=== PATIENT | male | born 1995 | race Two or more races ===

== ENCOUNTER 2020-04-14 05:37 | Emergency (ER) | payer MEDICAID, OTHER ==
[~2020-04-14] VITALS: Ht 175.3 cm; Wt 93.0 kg
[2020-04-14 05:50] VITALS: BP 152/96
[2020-04-14 06:13] LABS: BASOPHILS % (AUTO) 1.5 % (0.0-2.0); EOSINOPHILS % (AUTO) 2.4 % (0.0-3.0); HEMATOCRIT 50.2 % (42.0-52.0); HEMOGLOBIN 16.3 G/DL (14.2-18.0); MEAN CORPUSCULAR VOLUME 89 FL (80-99); MONOCYTES % (AUTO) 10.3 % (1.0-10.0); NEUTROPHILS % (AUTO) 56.9 % (45.0-75.0); PLATELET COUNT 194 K/UL (150-450); RED BLOOD COUNT 5.63 M/UL (4.70-6.10); RED CELL DISTRIBUTION WIDTH 13.2 % (11.6-14.8); WHITE BLOOD COUNT 6.7 K/UL (4.8-10.8)
--- NOTE | 2020-04-14 06:16 | Emergency Room Report ---
History of Present Illness General Chief Complaint: Chest Pain Source: Patient Present Illness HPI Disclaimer: Please note that this report is being documented using DRAGON technology. This can lead to erroneous entry secondary to incorrect interpretation by the dictating instrument. HPI: 24-year-old male presents for evaluation of chest pain. Symptoms began this morning approximately 4 hours ago. He reports sharp nonradiating chest pain in the center of his chest. Reports increased pain with movement and pain is relieved by rest. He took Tylenol prior to arrival which is improving his pain. Denies cough, fever reports mild shortness of breath because of the chest pain. No prior history of cardiac disease. Reports recent cocaine and alcohol use. Non-smoker. Denies recent travel, immobilization, leg pain or swelling, history of coagulopathy or hormone use. PMH: Reviewed PSH: Reviewed Allergies: Reviewed Social Hx: Alcohol, cocaine Allergies: Coded Allergies: No Known Allergies (Unverified , 04/14/20) COVID-19 Screening Contact w/high risk pt: No Experienced COVID-19 symptoms?: No COVID-19 Testing performed THERMODYNAMICS ENGINEER: No Nursing Documentation-PMH Past Medical History: No History, Except For Hx Asthma: Yes Review of Systems All Other Systems: negative except mentioned in HPI Physical Exam Vital Signs Date Time Temp Pulse Resp B/P (MAP) Pulse Ox O2 Delivery O2 Flow Rate FiO2 04/14/20 05:38 98.8 76 18 152/96 (114) 97 Room Air General: Awake and alert, no acute distress HEENT: NC/AT. EOMI. Chest Wall: No tenderness, no deformity. Cardiovascular: RRR. S1 and S2 normal. No murmur appreciated Resp: Normal work of breathing. No cough, wheezing or crackles appreciated Abdomen: Abdomen is soft, nondistended. Nontender Skin: Intact. No abrasions, laceration or rash over the exposed skin MSK: Normal tone and bulk. Moving all extremities. No obvious deformity. Neuro: Awake and alert. Mentating appropriately. Medical Decision Making Diagnostic Impression: Primary Impression: Chest pain ER Course This is a 24-year-old male presenting for evaluation of chest pain. Differential includes was not limited to musculoskeletal chest pain, pericarditis, bronchitis, pneumonia, esophageal spasm, ACS among others. EKG is nonischemic overall unremarkable. No infiltrates or other abnormalities identified on chest x-ray. Labs including troponin are within normal limits. I suspect musculoskeletal chest pain and the patient is low risk for any major adverse cardiac events according to heart score which is 0. Patient stable for outpatient follow-up. Will start on NSAIDs. Advised to abstain from alcohol and drug use. Instructed to follow-up with clinic and to return with new or worsening symptoms. He understands and agrees with this treatment plan. Laboratory Tests Test 04/14/20 05:50 White Blood Count 6.7 K/UL (4.8-10.8) Red Blood Count 5.63 M/UL (4.70-6.10) Hemoglobin 16.3 G/DL (14.2-18.0) Hematocrit 50.2 % (42.0-52.0) Mean Corpuscular Volume 89 FL (80-99) Mean Corpuscular Hemoglobin 28.9 PG (27.0-31.0) Mean Corpuscular Hemoglobin Concent 32.4 G/DL (32.0-36.0) Red Cell Distribution Width 13.2 % (11.6-14.8) Platelet Count 194 K/UL (150-450) Mean Platelet Volume 8.2 FL (6.5-10.1) Neutrophils (%) (Auto) 56.9 % (45.0-75.0) Lymphocytes (%) (Auto) 29.0 % (20.0-45.0) Monocytes (%) (Auto) 10.3 % (1.0-10.0) H Eosinophils (%) (Auto) 2.4 % (0.0-3.0) Basophils (%) (Auto) 1.5 % (0.0-2.0) Sodium Level 136 MMOL/L (136-145) Potassium Level 3.7 MMOL/L (3.5-5.1) Chloride Level 103 MMOL/L (98-107) Carbon Dioxide Level 30 MMOL/L (21-32) Anion Gap 3 mmol/L (5-15) L Blood Urea Nitrogen 12 mg/dL (7-18) Creatinine 1.2 MG/DL (0.55-1.30) Estimated Glomerular Filtration Rate > 60 mL/min (>60) Glucose Level 108 MG/DL (74-106) H Calcium Level 8.7 MG/DL (8.5-10.1) Total Bilirubin 0.2 MG/DL (0.2-1.0) Aspartate Amino Transferase (AST) 29 U/L (15-37) Alanine Aminotransferase (ALT) 29 U/L (12-78) Alkaline Phosphatase 114 U/L (46-116) Troponin I 0.000 ng/mL (0.000-0.056) Total Protein 7.1 G/DL (6.4-8.2) Albumin 4.1 G/DL (3.4-5.0) Globulin 3.0 g/dL Albumin/Globulin Ratio 1.4 (1.0-2.7) EKG Diagnostic Results Troponin ordered: Yes When was troponin ordered?: Apr 14, 2020 EKG Time: 06:13 Rate: normal Rhythm: NSR ST Segments: no acute changes Other Impression Sinus rhythm, normal axis, normal intervals, no ST segment changes Rhythm Strip Diag. Results Rhythm Strip Time: 06:13 EP Interpretation: yes Rate: 60s Rhythm: NSR, no PVC's, no ectopy Chest X-Ray Diagnostic Results Chest X-Ray Diagnostic Results : Chest X-Ray Ordered: Yes # of Views/Limited/Complete: 1 View Indication: Chest Pain Interpretation: no consolidation, no effusion, no pneumothorax Impression: No acute disease Electronically Signed by: Electronically signed by Dr. Jorgito Gupta Last Vital Signs Date Time Temp Pulse Resp B/P (MAP) Pulse Ox O2 Delivery O2 Flow Rate FiO2 04/14/20 05:50 65 18 Room Air 04/14/20 05:50 98.8 152/96 97 Disposition: HOME, SELF-CARE Condition: Stable Scripts Ibuprofen* (MOTRIN*) 600 Mg Tablet 600 MG ORAL Q6H PRN for For Pain, #30 TAB 0 Refills Prov: Jorgito Gupta MD 04/14/20 Referrals: NON PHYSICIAN (PCP) Jorgito Gupta MD Apr 14, 2020 06:16
[2020-04-14 06:22] LABS: ANION GAP 3 mmol/L (5-15); BLOOD UREA NITROGEN 12 mg/dL (7-18); CALCIUM 8.7 MG/DL (8.5-10.1); CARBON DIOXIDE 30 MMOL/L (21-32); CHLORIDE 103 MMOL/L (98-107); CREATININE 1.2 MG/DL (0.55-1.30); POTASSIUM 3.7 MMOL/L (3.5-5.1); SODIUM 136 MMOL/L (136-145)
[2020-04-14 06:26] LABS: ALANINE AMINOTRANSFERASE 29 U/L (12-78); ALBUMIN 4.1 G/DL (3.4-5.0); ALBUMIN/GLOBULIN RATIO 1.4 (1.0-2.7); ALKALINE PHOSPHATASE 114 U/L (46-116); ASPARTATE AMINO TRANSFERASE 29 U/L (15-37); BILIRUBIN,TOTAL 0.2 MG/DL (0.2-1.0)
[2020-04-14] MEDS ORDERED: IBUPROFEN600 M1 ORAL (06:48)
--- NOTE | 2020-04-14 06:49 | Diagnostic Imaging Report ---
EXAM: XR Chest, 1 View CLINICAL HISTORY: CP TECHNIQUE: Frontal view of the chest. COMPARISON: No relevant imaging studies available. FINDINGS: Lungs: The lungs are mildly hypoinflated. No consolidation. Pleural space: Unremarkable. No pneumothorax. Heart: Unremarkable. No cardiomegaly. Mediastinum: Unremarkable. Bones/joints: Unremarkable. IMPRESSION: Hypoinflation with no acute cardiopulmonary disease.
[2020-04-14 06:50] VITALS: BP 135/89
== END 2020-04-14 06:50 | disposition home or self-care (01) ==
LOC: EMR 05:51
DX: R07.9 Chest pain, unspecified (principal)
CPT/HCPCS: 36415; 71045; 80053; 84484; 85025; 93005; Z7502; 99284